=== PATIENT | male | born 1980 | race African-American/Black ===

== ENCOUNTER 2018-02-27 21:32 | Emergency (ER) | payer SELFPAY ==
[~2018-02-27] VITALS: Ht 182.9 cm; Wt 83.0 kg
[2018-02-28] MEDS ORDERED: ACETAMINOPHEN 500MG TABLET PO ONE (01:00)
[2018-02-28] MEDS ORDERED: MORPHINE SULFATE 4 MG/ML CPJ (NOT FOR IM USE) IV ONE (01:30)
[2018-02-28 01:38] LABS: HEMOGLOBIN 12.9 g/dL (14.0-18.0); MEAN CORPUSCULAR HEMOGLOBIN 33.4 pg (28.0-32.0); MEAN CORPUSCULAR VOLUME 95.6 fL (80.0-94.0); PLATELET 204 x1000/uL (130-400); RED BLOOD CELL COUNT 3.87 mill/uL (4.7-6.1); RED CELL DISTRIBUTION WIDTH 12.9 % (11.6-14.6)
[2018-02-28 01:39] LABS: CHLORIDE 104 mEq/L (98-107)
[2018-02-28 03:06] VITALS: BP 97/56
== END 2018-02-28 03:06 | disposition short-term general hospital (02) ==
LOC: ER 21:32
DX: S12.110A Anterior displaced Type II dens fracture, initial encounter for closed fracture (principal); J45.909 Unspecified asthma, uncomplicated; F17.200 Nicotine dependence, unspecified, uncomplicated; F12.10 Cannabis abuse, uncomplicated; V49.88XA Car occupant (driver) (passenger) injured in other specified transport accidents, initial encounter; Y93.89 Activity, other specified; Y92.89 Other specified places as the place of occurrence of the external cause; Y99.8 Other external cause status
CPT/HCPCS: 36415; 70450; 71045; 72125; 80048; 85027; 86850; 86900; 86901; 96374; 99285; J2270

== ENCOUNTER 2020-04-24 14:39 | Inpatient (IN) | payer OTHER, MEDICAID ==
[~2020-04-24] VITALS: Ht 182.9 cm; Wt 64.1 kg
[2020-04-24] MEDS ORDERED: SODIUM CHLORIDE 0.9% 1,000 ML IV ONE (14:57)
[2020-04-24 15:27] LABS: CHLORIDE 105 mEq/L (98-107)
[2020-04-24 15:28] LABS: BASOPHILS % 0.6 % (0.0-2.0); EOSINOPHILS % 4.2 % (0.0-5.0); HEMOGLOBIN. 14.3 g/dL (14.0-18.0); LYMPHOCYTES % 35.9 % (20.0-50.0); MEAN CORPUSCULAR HEMOGLOBIN 32.6 pg (28.0-32.0); MEAN CORPUSCULAR VOLUME 95.9 fL (80.0-94.0); MEAN PLATELET VOLUME 7.9 fl (7.4-10.4); NEUTROPHILS % 51.3 % (40.0-76.0); PLATELET 220 x1000/uL (130-400); RED BLOOD CELL COUNT 4.38 mill/uL (4.7-6.1); RED CELL DISTRIBUTION WIDTH 12.6 % (11.6-14.6)
[2020-04-24 15:32] LABS: ETHANOL BLOOD < 10 mg/dL
[2020-04-24 15:36] LABS: PROTHROMBIN TIME 10.4 sec (9.6-11.0)
[2020-04-24 16:20] LABS: CLARITY URINE CLOUDY (CLEAR); COLOR URINE YELLOW (YELLOW); KETONES URINE NEGATIVE (NEGATIVE); LEUKOCYTE ESTERASE URINE NEGATIVE (NEGATIVE); NITRITE URINE NEGATIVE (NEGATIVE); OCCULT BLOOD URINE NEGATIVE (NEGATIVE); PH URINE >=9.0 (4.5-8.0); PROTEIN URINE NEGATIVE (NEGATIVE); SPECIFIC GRAVITY URINE 1.017 (1.005-1.030); UROBILINOGEN URINE 0.2 E.U./dL (0.2-1.0)
[2020-04-24 16:33] LABS: *AMPHETAMINES SCREEN URINE NEGATIVE (NEGATIVE)
[2020-04-24 16:35] LABS: *BARBITURATES SCREEN URINE NEGATIVE (NEGATIVE); *BENZODIAZEPINES SCREEN URINE NEGATIVE (NEGATIVE); *COCAINE SCREEN URINE NEGATIVE (NEGATIVE); CANNABINOID URINE SCREEN PRESUMTIVE POSITIVE (NEGATIVE); METHADONE URINE SCREEN NEGATIVE (NEGATIVE); OPIATES URINE SCREEN NEGATIVE (NEGATIVE); PHENCYCLIDINE URINE SCREEN NEGATIVE (NEGATIVE)
[2020-04-24] MEDS ORDERED: ACETAMINOPHEN 325MG TABLET PO PRN (19:30)
[2020-04-24] MEDS ORDERED: MAGNESIUM/ALUMINUM HYDROXIDE/SIMETHICONE 30ML UDC PO PRN (19:30)
[2020-04-24] MEDS ORDERED: CLONIDINE 0.1MG TABLET PO PRN (19:30)
[2020-04-24] MEDS ORDERED: DOCUSATE SODIUM 100MG CAPSULE PO PRN (19:30)
[2020-04-24] MEDS ORDERED: ONDANSETRON HCL 4MG/2ML INJ IV PRN (19:30)
[2020-04-24] MEDS ORDERED: GUAIFENESIN 200MG/10ML SUGAR FREE UDC PO PRN (19:30)
[2020-04-24] MEDS ORDERED: DEXAMETHASONE 4MG/ML 1ML VIAL IV ONE (19:45)
[2020-04-24] MEDS ORDERED: DEXT 5%/0.45% NACL 1000ML 1,000 ML IV SCH (19:45)
[2020-04-24 21:55] VITALS: BP 116/73
[2020-04-25] VITALS: BP 118/75
[2020-04-25 02:00] VITALS: BP 115/73
[2020-04-25] MEDS: DEXAMETHASONE 4MG/ML 1ML VIAL IV SCH ×2 (02:14→06:15)
[2020-04-25 04:00] VITALS: BP 127/68
[2020-04-25 06:00] VITALS: BP 101/72
[2020-04-25 08:00] VITALS: BP 113/73
[2020-04-25 08:01] LABS: HEMATOCRIT. 44.5 % (42.0-52.0); HEMOGLOBIN. 15.2 g/dL (14.0-18.0); MEAN CORPUSCULAR HEMOGLOBIN 32.6 pg (28.0-32.0); MEAN CORPUSCULAR VOLUME 95.5 fL (80.0-94.0); MEAN PLATELET VOLUME 8.5 fl (7.4-10.4); PLATELET 238 x1000/uL (130-400); RED BLOOD CELL COUNT 4.66 mill/uL (4.7-6.1); RED CELL DISTRIBUTION WIDTH 12.9 % (11.6-14.6)
[2020-04-25 08:16] LABS: CHLORIDE 105 mEq/L (98-107)
[2020-04-25 08:23] LABS: LDL CHOLESTEROL 108 mg/dL (5-100)
[2020-04-25 08:24] LABS: HDL CHOLESTEROL 87 mg/dL (40-59)
[2020-04-25 10:00] VITALS: BP 125/65
[2020-04-25 10:59] LABS: PLATELET ESTIMATE NORMAL
== END 2020-04-25 11:46 | disposition left against medical advice (07) | DRG 70 ==
LOC: ER 14:39 → 3WST 18:44 → EDBEDREQ 18:57 → EDBEDREQSVC 20:58 → EDBEDREQTM 20:59 → ENRESERV 21:02
PROVIDERS: ADMIT Hospitalist; ATTEND Hospitalist
DX: G93.41 Metabolic encephalopathy (principal); G82.50 Quadriplegia, unspecified; M50.01 Cervical disc disorder with myelopathy, high cervical region; R47.01 Aphasia; G95.29 Other cord compression; E78.5 Hyperlipidemia, unspecified; Z53.29 Procedure and treatment not carried out because of patient's decision for other reasons; M48.02 Spinal stenosis, cervical region; F12.90 Cannabis use, unspecified, uncomplicated; J45.909 Unspecified asthma, uncomplicated; Z79.899 Other long term (current) drug therapy
CPT/HCPCS: 36415; 70551; 72141; 80053; 80061; 80305; 80320; 81003; 84484; 85025; 93005; 96365; 99291; J1100; J7030; G0480